=== PATIENT | female | born 1965 | race Hispanic/Latino ===

== ENCOUNTER 2021-01-26 15:47 | Inpatient (IN) | payer BC ==
--- OUTSIDE RECORDS SUMMARY | 2021-01-26 15:49 | XMS REPORT | Continuity of Care Document ---
:1965 Author Organization [facility] t Address [address] [place] [id number] Care Team Providers Name Role Phone Unavailable Unavailable Unavailable Problems This patient has no known problems. Allergies, Adverse Reactions, Alerts This patient has no known allergies or adverse reactions. Medications This patient has no known medications. Procedures This patient has no known procedures. Results Test Description Test Time Test Comments Results Result Sourc e Comments MRA BRAIN WO 2017-08-15 CLINICAL INDICATION: 17:39:04 I67.9 Cerebrovascular disease, unspecified MODALITY: Avanto 1.5 Remedios 18 channel MRITECHNIQUE: 3 dimensional time of flight MR angiographic images, centered at the lower brule of [place], are performed. 2D and 3 D reconstructions are accomplished.IMPRESSIO N:Normal MR angiography of the brain and lower brule of [place].FINDINGS:COMPAR SHANITA: NoneThe bilateral distal cervical, petrous, cavernous and supraclinoid internal carotid arteries are patent. The anterior communicating artery is patent. The visualized anterior cerebral and middle cerebral arteries are patent. The middle cerebral arteries are followed to the perisylvian regions and are patent bilaterally.Posterior communicating arteries are patent. The bilateral vertebral arteries are patent without luminal abnormalities. The basilar artery is normal. There is no evidence of basilar artery stenosis. The visualized posterior circulation is normal.There is no evidence of aneurysm or vascular malformation.There is no significant intracranial atheromatous disease, luminal stenosis or vascular filling defect.There is no evidence of intracranial large vessel vasculitic process.There are no intracranial or skull base vascular dissections.
[2021-01-26] MEDS ORDERED: MORPHINE 4 MG/ML SYR ONE (19:01)
[2021-01-26] MEDS ORDERED: FAMOTIDINE 20 MG/2 ML VIAL IV ONE (19:01)
[2021-01-26] MEDS ORDERED: ONDANSETRON 4 MG/2 ML VIAL ONE (19:01)
[2021-01-26] MEDS ORDERED: NA CHLORIDE 0.9% 1,000 ML ONE (19:02)
[2021-01-26 19:10] LABS: Absolute Lymphocytes (CBC) 1.5 K/uL (0.7-4.9); Basophils % 0.5 % (0-1.3); Hematocrit 49.6 % (36.0-45.0); Lymphocytes % 18.9 % (15.3-44.8); MPV 10.5 fL (7.6-11.3); RBC Red Blood Cell Count 5.61 M/uL (3.86-4.86)
[2021-01-26 21:25] LABS: Albumin 3.9 g/dL (3.4-5.0); Bilirubin Direct 0.1 mg/dL (0-0.2); Bilirubin Total 0.5 mg/dL (0.2-1.0); Potassium 3.8 mmol/L (3.5-5.1); Protein, Total 7.8 g/dL (6.4-8.2)
--- NOTE | 2021-01-26 21:34 | RAD REPORT ---
EXAM DESCRIPTION: CTAbdomen Pelvis W Contrast - 01/26/2021 9:13 pm CLINICAL HISTORY: ABD PAIN COMPARISON: No comparisons TECHNIQUE: CT of the abdomen and pelvis was performed. All CT scans are performed using dose optimization technique as appropriate and may include automated exposure control or mA/KV adjustment according to patient size. FINDINGS: Lower chest: No acute abnormality. Liver: No acute abnormality or suspicious lesions. Biliary: No biliary ductal dilatation. Stomach: Distended stomach. Duodenum: No significant focal abnormality. Pancreas: No significant abnormality. Spleen: No significant abnormality. Adrenal: No suspicious lesions. Kidney/ureter: No hydronephrosis. No renal calculi. Too small to characterize and/or benign appearing renal lesions are noted. Retroperitoneum: No retroperitoneal adenopathy. Vascular: No aneurysm. Bowel: Dilated small bowel with multiple air-fluid levels measuring 3.2 cm. There is a transition to nondilated small bowel distally. There is stool within the colon. Normal appendix. Peritoneum: Small volume ascites. Bladder: Grossly unremarkable. Reproductive: No adnexal masses. Bones: No acute fracture. Moderate disc height loss at L5-S1. Other: n/a IMPRESSION: Small bowel obstruction with transition point in the ileum. No obstructing mass is seen. This is presumably secondary to adhesions. Moderate length segment of small bowel wall thickening wi thin the central abdomen that is is concerning for coexisting enteritis. Small volume of free fluid.
--- NOTE | 2021-01-26 21:59 | EDPHYS ---
Physician Documentation [facility] Name: Macy Brar Age: 55 yrs Sex: Female : 1965 Arrival Date: 01/26/2021 Time: 15:51 Bed 23 Private MD: ED Physician Aurelio Pablo HPI: 01/26 18:43 This 55 yrs old Female presents to ER via Ambulatory with complaints of kdr Abdominal Pain. 18:43 The patient presents with abdominal pain in the upper abdomen, abdominal distention kdr that is diffuse. Onset: The symptoms/episode began/occurred yesterday, After she ate. The symptoms do not radiate. Associated signs and symptoms: Pertinent positives: nausea and vomiting, Pertinent negatives: diarrhea, dysuria, fever, headache, hematuria, palpitations, shortness of breath, vaginal discharge, vomiting blood. The symptoms are described as achy, sharp, vague. Modifying factors: The symptoms are alleviated by nothing, the symptoms are aggravated by food. Severity of pain: At its worst the pain was moderate severe incapacitating just prior to arrival, in the emergency department the pain is unchanged. The patient has experienced similar episodes in the past, a few times. The patient has been recently seen by a physician: Patient was admitted for about a week at [facility] and was discharged last Sunday. She has been fine until yesterday when after she ate she began to have abdominal pain and vomiting. 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 - Social history:: Smoking status: Patient denies any tobacco usage or history of. ROS: 18:43 Constitutional: Negative for fever, chills, and weight loss, Eyes: Negative for injury, kdr pain, redness, and discharge, ENT: Negative for injury, pain, and discharge, Neck: Negative for injury, pain, and swelling, Cardiovascular: Negative for chest pain, palpitations, and edema, Respiratory: Negative for shortness of breath, cough, wheezing, and pleuritic chest pain, Back: Negative for injury and pain, : Negative for injury, bleeding, discharge, and swelling, MS/Extremity: Negative for injury and deformity, Skin: Negative for injury, rash, and discoloration, Neuro: Negative for headache, weakness, numbness, tingling, and seizure activity. Psych: Negative for depression, anxiety, suicide ideation, homicidal ideation, and hallucinations, Allergy/Immunology: Negative for hives, rash, and allergies, Endocrine: Negative for neck swelling, polydipsia, polyuria, polyphagia, and marked weight changes, Hematologic/Lymphatic: Negative for swollen nodes, abnormal bleeding, and unusual bruising. 18:43 Abdomen/GI: Positive for abdominal pain, nausea and vomiting, Negative for abdominal distension, anorexia, dysphagia, hematemesis, black/tarry stool, rectal pain, rectal bleeding, flatulence. Exam: 18:43 Constitutional: This is a well developed, well nourished patient who is awake, alert, kdr and in no acute distress. Head/Face: Normocephalic, atraumatic. Eyes: Pupils equal round and reactive to light, extra-ocular motions intact. Lids and lashes normal. Conjunctiva and sclera are non-icteric and not injected. Cornea within normal limits. Periorbital areas with no swelling, redness, or edema. Neck: Trachea midline, no thyromegaly or masses palpated, and no cervical lymphadenopathy. Supple, full range of motion without nuchal rigidity, or vertebral point tenderness. No Meningismus. Chest/axilla: Normal chest wall appearance and motion. Nontender with no deformity. No lesions are appreciated. Cardiovascular: Regular rate and rhythm with a normal S1 and S2. No gallops, murmurs, or rubs. Normal PMI, no JVD. No pulse deficits. Respiratory: Lungs have equal breath sounds bilaterally, clear to auscultation and percussion. No rales, rhonchi or wheezes noted. No increased work of breathing, no retractions or nasal flaring. Back: No spinal tenderness. No costovertebral tenderness. Full range of motion. Skin: Warm, dry with normal turgor. Normal color with no rashes, no lesions, and no evidence of cellulitis. MS/ Extremity: Pulses equal, no cyanosis. Neurovascular intact. Full, normal range of motion. Neuro: Awake and alert, GCS 15, oriented to person, place, time, and situation. Cranial nerves II-XII grossly intact. Motor strength 5/5 in all extremities. Sensory grossly intact. Cerebellar exam normal. Normal gait. Psych: Awake, alert, with orientation to person, place and time. Behavior, mood, and affect are within normal limits. 18:43 Abdomen/GI: Inspection: distension, obese Bowel sounds: diminished, in all quadrants, Palpation: soft, moderate abdominal tenderness, in all quadrants. Vital Signs: 16:14 BP 141 / 101; Pulse 89; Resp 16; Temp 97.8(TE); Pulse Ox 100% on R/A; tw2 19:00 BP 155 / 85; Pulse 74; Resp 16; Temp 99.0; Pulse Ox 99% 0 lpm ; Weight 68.95 kg; Height iw 5 ft. 2 in. (157.48 cm); Pain 10/10; 20:25 BP 144 / 89; Pulse 83; Resp 16; Pulse Ox 97% 0 lpm ; iw 23:48 BP 139 / 89; Pulse 86; Resp 18; Temp 98.3; Pulse Ox 98% 0 lpm ; sv1 19:00 Body Mass Index 27.80 (68.95 kg, 157.48 cm) iw MDM: 18:43 Data reviewed: vital signs, nurses notes, lab test result(s), radiologic studies. kdr Counseling: I had a detailed discussion with the patient and/or guardian regarding: the historical points, exam findings, and any diagnostic results supporting the discharge/admit diagnosis, lab results, radiology results. 19:20 Patient medically screened. rn 21:57 Differential diagnosis: appendicitis, bowel obstruction, diverticulitis, non-specific rn abd pain. Response to treatment: the patient's symptoms have mildly improved after treatment, and as a result, I will admit patient. Admission orders: after a detailed discussion of the patient's condition and case, the admit orders are written by me. ED course: Consulted with Dr. Nieves, states admit to hospitalist service.. 01/26 18:18 Order name: Basic Metabolic Panel; Complete Time: 21:40 kdr 01/26 18:18 Order name: CBC with Diff; Complete Time: 20:27 kdr 01/26 18:18 Order name: Hepatic Function; Complete Time: 21:40 kdr 01/26 18:18 Order name: Lipase; Complete Time: 21:40 kdr 01/26 21:14 Order name: CREATININE WHOLE BLOOD; Complete Time: 21:40 EDMS 01/26 21:59 Order name: COVID-19 SARS RT PCR (Document "Date of Onset" if Symptomatic) la1 01/26 18:42 Order name: CT Abd/Pelvis - IV Contrast Only; Complete Time: 21:40 kdr 01/26 22:00 Order name: SARS-COV-2 RT PCR EDMS 01/27 00:49 Order name: Glucose, Ancillary Testing EDMS 01/26 18:18 Order name: IV Saline Lock; Complete Time: 18:52 kdr 01/26 18:18 Order name: Labs collected and sent; Complete Time: 18:52 kdr Administered Medications: 19:10 Drug: NS 0.9% 1000 ml Route: IV; Rate: 1 bolus; Site: left antecubital; iw 19:10 Drug: morphine 4 mg Route: IVP; Site: left antecubital; iw 20:05 Follow up: Response: Pain is decreased iw 19:10 Drug: Zofran (Ondansetron) 4 mg Route: IVP; Site: left antecubital; iw 20:04 Follow up: Response: Nausea is decreased iw 19:10 Drug: Pepcid (famotidine) 20 mg Route: IVP; Site: left antecubital; iw 20:04 Follow up: Response: No adverse reaction iw 22:54 Drug: Zosyn (piperacillin-tazobactam) 3.375 grams Route: IVPB; Infused Over: 60 mins; sv1 Site: left antecubital; Disposition Summary: 01/26/21 21:58 Hospitalization Ordered Hospitalization Status: Inpatient Admission rn Provider: Juan Pablo rn Location: Telemetry/MedSurg (Inpatient) rn Condition: Stable rn Problem: new rn Symptoms: have improved rn Bed/Room Type: Standard rn Room Assignment: 216(01/26/21 23:20) eb1 Diagnosis - Other and unspecified intestinal obstruction rn Forms: - Medication Reconciliation Form rn - SBAR form rn Signatures: Dispatcher [employer] EDMS eLo Hopper MD MD kdr Williams, Irene, RN RN Aurelio Newton MD MD rn Armando Bradley, WIG DRESSER-C WIG DRESSER-Cla1 Senia Duff RN RN tw2 Brandy Stevens RN RN eb1 Hany Auguste, RN RN sv1 Corrections: (The following items were deleted from the chart) 22:01 21:59 NG Tube ordered. rn rn 23:20 21:58 rn eb1
--- NOTE | 2021-01-26 21:59 | ER ---
Nurse's Notes [facility] Name: Macy Brar Age: 55 yrs Sex: Female : 1965 Arrival Date: 01/26/2021 Time: 15:51 Bed 23 Private MD: Diagnosis: Other and unspecified intestinal obstruction Presentation: 01/26 16:10 Chief complaint: Patient states: i am having severe stomach pains. i have been dealing tw2 with it for a week. i was admitted to [facility] for gastritis and a stomach ulcer. there was now bowel obstruction. i was fine up until yesterday but after i ate dinner i was in pain every since. pain is in the center of my stomach. i am nauseous and i have vomited twice today. Coronavirus screen: At this time, the client does not indicate any symptoms associated with coronavirus-19. Ebola Screen: Patient denies travel to an Ebola-affected area in the 21 days before illness onset. 16:10 Method Of Arrival: Ambulatory tw2 16:14 Initial Sepsis Screen: Does the patient meet any 2 criteria? No. Patient's initial tw2 sepsis screen is negative. Does the patient have a suspected source of infection? No. Patient's initial sepsis screen is negative. Risk Assessment: Do you want to hurt yourself or someone else? Patient reports no desire to harm self or others. Onset of symptoms was January 26, 2021. 16:14 Acuity: ERIC 3 tw2 Triage Assessment: 16:14 General: Appears in no apparent distress. comfortable, Behavior is calm, cooperative, tw2 appropriate for age. Pain: Complains of pain in abdomen. GI: Reports lower abdominal pain, upper abdominal pain, nausea, vomiting. 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 - Social history:: Smoking status: Patient denies any tobacco usage or history of. Screenin:14 Abuse screen: none. Nutritional screening: No deficits noted. Tuberculosis screening: iw No symptoms or risk factors identified. Never had TB. Fall Risk None identified. Assessment: 19:15 Pain: Complains of pain in abdomen. GI: Bowel sounds Abd is soft Abdomen is tender to iw palpation X 4 quads. 23:50 General: The patient is to be admitted to room 216. . sv1 Vital Signs: 16:14 BP 141 / 101; Pulse 89; Resp 16; Temp 97.8(TE); Pulse Ox 100% on R/A; tw2 19:00 BP 155 / 85; Pulse 74; Resp 16; Temp 99.0; Pulse Ox 99% 0 lpm ; Weight 68.95 kg; Height iw 5 ft. 2 in. (157.48 cm); Pain 10/10; 20:25 BP 144 / 89; Pulse 83; Resp 16; Pulse Ox 97% 0 lpm ; iw 23:48 BP 139 / 89; Pulse 86; Resp 18; Temp 98.3; Pulse Ox 98% 0 lpm ; sv1 19:00 Body Mass Index 27.80 (68.95 kg, 157.48 cm) iw ED Course: 15:51 Patient arrived in ED. mr 16:14 Arm band placed on. tw2 16:16 Triage completed. tw2 18:01 Leo Hopper MD is Attending Physician. kdr 18:26 Amaya Saunders RN is Primary Nurse. iw 18:51 Initial lab(s) drawn, by co, sent to lab. Inserted saline lock: 20 gauge in left iw antecubital area, using aseptic technique. Blood collected. 19:14 Patient has correct armband on for positive identification. Bed in low position. Call iw light in reach. Side rails up X 1. 19:20 Attending Physician role handed off by Leo Hopper MD rn 19:20 Aurelio Pablo MD is Attending Physician. rn 21:13 CT Abd/Pelvis - IV Contrast Only In Process Unspecified. EDMS 21:58 Juan Pablo MD is Hospitalizing Provider. rn 22:54 COVID-19 SARS RT PCR (Document "Date of Onset" if Symptomatic) Sent. sv1 23:50 No provider procedures requiring assistance completed. IV is patent. sv1 23:51 Patient admitted, IV remains in place. intact. sv1 Administered Medications: 19:10 Drug: NS 0.9% 1000 ml Route: IV; Rate: 1 bolus; Site: left antecubital; iw 19:10 Drug: morphine 4 mg Route: IVP; Site: left antecubital; iw 20:05 Follow up: Response: Pain is decreased iw 19:10 Drug: Zofran (Ondansetron) 4 mg Route: IVP; Site: left antecubital; iw 20:04 Follow up: Response: Nausea is decreased iw 19:10 Drug: Pepcid (famotidine) 20 mg Route: IVP; Site: left antecubital; iw 20:04 Follow up: Response: No adverse reaction iw 22:54 Drug: Zosyn (piperacillin-tazobactam) 3.375 grams Route: IVPB; Infused Over: 60 mins; sv1 Site: left antecubital; Outcome: 21:58 Decision to Hospitalize by Provider. rn 23:51 Admitted to Med/surg accompanied by tech. sv1 23:51 Condition: good 23:56 Admitted to Med/surg room 216, with chart, Report called to CATRACHITA Krueger lp1 23:56 Instructed on the need for admit. 01/27 00:50 Patient left the ED. lp1 Signatures: Dispatcher [employer] EDMS Leo Hopper MD MD kdr Rivera, Mary mr Amaya Saunders RN RN iw Aurelio Pablo MD MD rn Pena, Laura, RN RN lp1 Senia Duff RN RN 2 Hany Auguste RN RN sv1
[2021-01-26] MEDS ORDERED: NA CHLORIDE 0.9% 100 ML ONE (22:08)
[2021-01-26] MEDS ORDERED: PIPERACIL/TAZO 3.375 GM VIAL IV ONE (22:09)
--- NOTE | 2021-01-26 22:52 | P.HP ---
Certification for Inpatient Patient admitted to: Inpatient With expected LOS: >2 Midnights Patient will require the following post-hospital care: None Practitioner: I am a practitioner with admitting privileges, knowledge of patient current condition, hospital course, and medical plan of care. Services: Services provided to patient in accordance with Admission requirements found in Title 42 Section 412.3 of the Code of Federal Regulations Patient History Date of Service: 01/26/21 Primary Care Provider: dr. Apple Reason for admission: Small bowel obstruction History of Present Illness: 55-year-old female with history of diabetes mellitus type 2, gastritis presents emergency department for abdominal pain. Patient ports that she was admitted at [facility] on Sunday of last week overnight for suspected small bowel obstruction, patient had rapid improvement and was discharged at that time. Patient reports has been feeling well ever since then until today after eating dinner began having epigastric pain and vomited twice. Patient presented to the emergency department for evaluation labs were significant for hemoglobin 16.6 medical 49.[address] abdomen pelvis demonstrated suspected mechanical small bowel obstruction with transition point at the ileum, patient has had 3 C-sections in the past, suspected adhesions. No flatus for the last 24 hours, last bowel movement yesterday. Will admit for further evaluation and management of small bowel obstruction. 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 moist/pink, EOMI, Sclerae nonicteric Neck: Supple, 2+ carotid pulse no bruit, No LAD, Without JVD or thyroid abnormality Respiratory: Clear to auscultation bilaterally, Normal air movement Cardiovascular: Regular rate/rhythm, Normal S1 S2 Capillary refill: <2 Seconds Gastrointestinal: Normal bowel sounds, Tenderness (Mild generalized abdominal tenderness) Musculoskeletal: No tenderness Integumentary: No rashes Neurological: Normal speech, Normal strength at 5/5 x4 extr, Normal tone, Normal affect - Studies Laboratory Data (last 24 hrs) 01/26/21 18:49: WBC 8.00, Hgb 16.6 H, Hct 49.6 H, Plt Count 215 01/26/21 18:49: Sodium 142, Potassium 3.8, BUN 14, Creatinine 1.14, Glucose 165 H, Total Bilirubin 0.5, AST 31, ALT 45, Alkaline Phosphatase 129 H, Lipase 98 Assessment and Plan - Plan Assessment: Small bowel obstruction Diabetes type [id number] Gastritis Plan: Small bowel obstruction: N.p.o., IVF, General surgery consult in place continue IV antibioticZosyn. Abdominal x-ray in the morning. Encourage ambulation, as needed pain medication. NG tube will be inserted if patient has worsening abdominal distention, severe pain or vomiting. Diabetes type [id number]: Every 6 hours Accu-Chek, mild sliding scale insulin, A1c with morning lab. Gastritis: Continue with IV Protonix daily. DVT PPX: Lovenox Code status: Full code Discharge Plan: Home Plan to discharge in: 48 Hours - Advance Directives Does patient have a Living Will: No Does patient have a Durable POA for Healthcare: No - Code Status/Comfort Care Code Status Assessed: Yes (Full code) Critical Care: No Time Spent Managing Pts Care (In Minutes): 55
[2021-01-27] MEDS ORDERED: MORPHINE 2 MG/ML SYR IV PRN (00:35)
[2021-01-27] MEDS ORDERED: SODIUM CHLORIDE 0.9% 10ML INJ IV PRN (00:35)
[2021-01-27] MEDS: D5 0.45 NS 1,000 ML IV SCH ×2 (00:57→08:10)
[2021-01-27] MEDS: ONDANSETRON 4 MG/2 ML VIAL IV PRN ×3 (00:57→17:35)
[2021-01-27 04:00] LABS: Basophils % 0.2 % (0-1.3); Hematocrit 44.5 % (36.0-45.0); Lymphocytes % 25.2 % (15.3-44.8); MPV 10.4 fL (7.6-11.3); RBC Red Blood Cell Count 5.03 M/uL (3.86-4.86)
[2021-01-27 04:23] LABS: Albumin 3.2 g/dL (3.4-5.0); Bilirubin Total 0.5 mg/dL (0.2-1.0); Magnesium 2.4 mg/dL (1.8-2.4); Potassium 3.8 mmol/L (3.5-5.1); Protein, Total 6.6 g/dL (6.4-8.2); Thyroid Stimulating Hormone 1.37 uIU/mL (0.360-3.740)
--- NOTE | 2021-01-27 05:48 | P.PN ---
Date of Service: 01/27/21 Subjective: Pain has improved, continues with some nausea, no emesis since admission Denies any bloating sensation No flatus, no bowel movement ROS: 10 point ROS as noted above, otherwise negative Physical exam GEN: Alert, oriented, NAD HEENT: Normal conjunctiva, sclera anicteric CV: Regular rate and rhythm, no edema Pulm: Nonlabored respirations on room air ABD: Soft, tenderness to palpation in lower abdomen / perimbilical Neuro: Normal speech, normal affect Problem list Small bowel obstruction, recurrent Diabetes type [id number] Gastritis with ulcer Bowel rest, n.p.o., IV fluids General surgery consulted Continue IV Zosyn Pain medication as needed NG tube if patient has worsening symptoms Accu-Chek with sliding scale insulin Continue IV Protonix for treatment of her gastritis/ulcer Recently had similar episode 1 week ago, was at [place], and resolved on its own. Code: Full Dispo: Anticipate DC home in 1-2 days, awaiting resolution of bowel obstruction Time Spent Managing Pts Care (In Minutes): 35
[2021-01-27] MEDS: INSULIN -REGULAR HUMAN 50 UNIT/0.5 ML ML SQ SCH ×3 (06:40→18:00)
[2021-01-27] MEDS ORDERED: INSULIN -REGULAR HUMAN 50 UNIT/0.5 ML ML SQ SCH (07:30)
[2021-01-27] MEDS: PIPER TAZO 3.375 GM in NA CHLORIDE 0.9% 100 ML IV SCH ×2 (07:54→17:08)
[2021-01-27] MEDS: ENOXAPARIN 40 MG/0.4 ML SQ SCH ×2 (07:54→09:00)
[2021-01-27 08:45] LABS: Urine Appearance TURBID (Clear); Urine Bilirubin NEGATIVE (Negative); Urine Blood NEGATIVE (Negative); Urine Color DK YELLOW (Yellow); Urine Glucose TRACE (Negative); Urine Microscopic Reflex ORDER UMIC; Urine Protein TRACE (Negative); Urine Specific Gravity >=1.030 (1.005-1.030); Urine Urobilinogen 0.2 mg/dL (0.2-1.0)
[2021-01-27] MEDS ORDERED: KCL 20 MEQ/100 mL IVPB 20 MEQ/100 ML BAG IV SCH (09:00)
[2021-01-27] MEDS ORDERED: PANTOPRAZOLE 40 MG INJ IVP SCH (09:00)
[2021-01-27 09:08] LABS: Calcium Oxalate Crystals- Ur MANY (NONE SEEN); Urine Amorphous Sediment 3+ /HPF (NONE SEEN); Urine Bacteria <20 /HPF (<20); Urine RBC NONE SEEN /HPF (NONE SEEN)
[2021-01-27] MEDS: D5 0.45 NS 500 ML IV SCH ×2 (11:58→18:13)
--- NOTE | 2021-01-27 12:38 | P.CNS ---
Date of Consult: 01/27/21 PC: This 55-year-old female presented to the emergency room with severe abdominal pain for diagnosis and treatment. HPC: Patient recently had been at another facility with a similar complaint. She was admitted at that time for small partial small bowel obstruction. After 72 hours, they felt that the obstruction had cleared, and she was tolerating a regular diet. She returned home and shortly after she began to resume her regular diet she presented back to our facility with the same complaints. She describes the pain as severe, constant, located just to the right of the midline in the mid abdomen. Also associated with some cramping. No recent bowel movements. Has however been passing gas per rectum. PSHx: x3 [1 midline, 2 Pfannenstiel incisions], neck surgery PMHx: Diabetes Social Hx: Allergic to fluconazole, and sulfa Sys R: No cough, wheeze, shortness of breath. No urinary complaints. States she is otherwise in fairly good health O/E: Awake alert vital signs are stable HEENT: Within normal limits Chest: Chest movement equal bilaterally Abd: Abdomen is soft, but firm no true guarding or rebound [place]: Intact Data: White cell count is normal, but however CT scan suspicious for small bowel obstruction Impression: Partial small bowel obstruction Plan: I will take her to the operating room for laparoscopy possible open laparotomy to evaluate and treat her abdominal complaint. I feel this is most likely going to be due to adhesions. We will try and do this laparoscopically as possible. However an open procedure was explained to the patient. The need for a bowel resections was explained. The possibility of bleeding, infection, leakage of anastomosis, and adhesive problems in the future were outlined. Unforeseen episodes were also explained. She understands and wants us to proceed.
[2021-01-27] MEDS ORDERED: LIDOCAINE 2% MPF 5 ML VIAL ONE (12:40)
[2021-01-27] MEDS ORDERED: MIDAZOLAM HCL 2 MG/2 ML INJ ONE (12:40)
[2021-01-27] MEDS ORDERED: dexAMETHasone 10 MG/ML VIAL ONE (12:40)
[2021-01-27] MEDS ORDERED: propofoL 200 MG/20 ML VIAL IV ONE (12:40)
[2021-01-27] MEDS ORDERED: ROCURONIUM 50 MG/5 ML VIAL IV ONE (12:41)
[2021-01-27] MEDS ORDERED: FENTANYL CITR 250 MCG/5 ML ONE (12:41)
[2021-01-27] MEDS ORDERED: NA CHLORIDE 0.9% 1,000 ML ONE (12:42)
[2021-01-27] MEDS ORDERED: ONDANSETRON 4 MG/2 ML VIAL ONE (12:43)
[2021-01-27] MEDS ORDERED: BUPIVACAINE 0.5% Inj,MDV 50 mL VIAL ONE (13:09)
[2021-01-27] MEDS ORDERED: NEOSTIGMINE 1 MG/ML -5 ML ONE (14:26)
[2021-01-27] MEDS ORDERED: GLYCOPYRROLATE 0.2 MG/ML SYR ONE ×2 (14:26)
[2021-01-27] MEDS ORDERED: KETOROLAC 30 MG/ML INJ ONE (14:26)
--- NOTE | 2021-01-27 14:51 | P.OP ---
Preoperative diagnosis: Partial small bowel obstruction Postoperative diagnosis: The same Primary procedure: Laparoscopy Secondary procedure: Laparoscopic lysis of adhesions Other procedure(s): Tap block with 0.25% Marcaine Anesthesia: General Estimated blood loss: Less than 10 cc Findings: Intra-abdominal adhesions Operative Technique: The patient brought the operating room and placed supine on the table. After the induction of adequate general anesthesia, a Nielson catheter was placed. The abdomen was then prepped with a DuraPrep solution, and she was draped in the usual aseptic manner. Attention was turned towards the left side of the abdominal wall. The area was injected with 0.25% Marcaine. A skin incision was made. This is where we used the Visiport to come through the subcutaneous tissue. The muscles layer were encountered and opened in order. The peritoneum was finally identified and we entered the peritoneal cavity. It was apparent there were numerous amount of omental adhesions to the anterior abdominal wall. The uterus was essentially stuck to the anterior abdominal wall in the lower pelvis. These adhesions were quite dense and thickened. They were taken down using blunt and sharp dissection with the Metzenbaum scissors. The anterior abdominal wall having finally been cleared the omentum was detached. It was now, after placing the patient in Trendelenburg and rolled to the left towards the right upper quadrant. The small bowel was identified. We were able to run this from the ligament of Treitz down distally towards the distal ileum. In the proximal abdomen was a area of dilation not acutely inflamed but it did come down to a taper area with a definite line across it where the hang up most likely was. The bowel was then fairly run down into the true pelvis also we came to the ileocecal valve. There was no evidence of any vascular compromise, no evidence of any acute inflammation, and no evidence of any further obstruction. At this point the end the small bowel was returned to its normal anatomical position. The omentum was laid over the top of the intestines. The anterior abdominal wall was now blocked with 0.25% Marcaine performing a tap block on both sides. The 10 mm trocar site was now approximated using the Endo Close and an absorbable suture. At this point the pneumoperitoneum was collapsed, the trochars removed, and the sutures tied. [place] were then applied to the skin. At the end of the procedure she was stable and sent to the recovery room. Needle sponge instrument count were correct. No drains were placed.
[2021-01-27] MEDS ORDERED: MORPHINE 4 MG/ML SYR IV PRN (15:17)
[2021-01-27 15:27] VITALS: O2SAT 97
[2021-01-27] MEDS ORDERED: MORPHINE 4 MG/ML SYR ONE (15:40)
[2021-01-27] MEDS: HYDROCODONE/APAP 7.5/325 MG TAB PO PRN (17:30)
[2021-01-27] MEDS ORDERED: MINERAL OIL 30 ML UCUP PO ONE (19:00)
[2021-01-28] MEDS: PIPER TAZO 3.375 GM in NA CHLORIDE 0.9% 100 ML IV SCH ×2 (01:22→09:03)
[2021-01-28] MEDS: D5 0.45 NS 500 ML IV SCH (01:29)
[2021-01-28] MEDS: HYDROCODONE/APAP 7.5/325 MG TAB PO PRN (04:55)
[2021-01-28] MEDS: ONDANSETRON 4 MG/2 ML VIAL IV PRN (05:09)
[2021-01-28] MEDS: INSULIN -REGULAR HUMAN 50 UNIT/0.5 ML ML SQ SCH ×3 (06:00→11:28)
[2021-01-28] MEDS ORDERED: D5 0.45 NS 1,000 ML IV SCH (06:01)
[2021-01-28 06:02] LABS: Absolute Lymphocytes (CBC) 1.2 K/uL (0.7-4.9); Basophils % 0.1 % (0-1.3); Hematocrit 38.8 % (36.0-45.0); Lymphocytes % 14.7 % (15.3-44.8); MPV 9.9 fL (7.6-11.3)
--- NOTE | 2021-01-28 06:02 | P.PN ---
Date of Service: 01/28/21 Subjective: ROS: 10 point ROS as noted above, otherwise negative Physical exam GEN: Alert, oriented, NAD HEENT: Normal conjunctiva, sclera anicteric CV: Regular rate and rhythm, no edema Pulm: Nonlabored respirations on room air ABD: Soft, tenderness to palpation in lower abdomen / perimbilical Neuro: Normal speech, normal affect Problem list Small bowel obstruction, recurrent Diabetes type [id number] Gastritis with ulcer General surgery consulted, s/p lysis of adhesions on 01/27 Pain medication as needed gentle IVF, diet advanced as tolerated Accu-Chek with sliding scale insulin Continue Protonix for treatment of her gastritis/ulcer Code: Full Dispo: Anticipate DC home within ~1 day, awaiting resolution of bowel obstruction Time Spent Managing Pts Care (In Minutes): 35
[2021-01-28 06:34] LABS: Bilirubin Total 0.4 mg/dL (0.2-1.0); Magnesium 2.2 mg/dL (1.8-2.4); Potassium 3.6 mmol/L (3.5-5.1); Protein, Total 6.2 g/dL (6.4-8.2)
[2021-01-28] MEDS ORDERED: PANTOPRAZOLE 40MG TABLET PO SCH (08:00)
[2021-01-28] MEDS ORDERED: POTASSIUM CL SA 10 MEQ TAB PO ONE (08:20)
[2021-01-28] MEDS ORDERED: POTASSIUM 25 MEQ EFFERV TAB PO ONE (09:00)
[2021-01-28] MEDS: ENOXAPARIN 40 MG/0.4 ML SQ SCH (09:02)
[2021-01-28 11:53] VITALS: BP 139/67; TEMP 97.5
--- NOTE | 2021-01-28 16:46 | P.DS ---
Admission Date: 01/26/21 Discharge Date: 01/28/21 Primary Care Provider: dr. Apple Disposition: DC HOME/HOME HEALTH CARE Reason for Admission: Small bowel obstruction Consultations: General surgeryDr. López Procedures: CT abdomen/pelvis (01/26): FINDINGS: Lower chest: No acute abnormality. Liver: No acute abnormality or suspicious lesions. Biliary: No biliary ductal dilatation. Stomach: Distended stomach. Duodenum: No significant focal abnormality. Pancreas: No significant abnormality. Spleen: No significant abnormality. Adrenal: No suspicious lesions. Kidney/ureter: No hydronephrosis. No renal calculi. Too small to characterize and/or benign appearing renal lesions are noted. Retroperitoneum: No retroperitoneal adenopathy. Vascular: No aneurysm. Bowel: Dilated small bowel with multiple air-fluid levels measuring 3.2 cm. There is a transition to nondilated small bowel distally. There is stool within the colon. Normal appendix. Peritoneum: Small volume ascites. Bladder: Grossly unremarkable. Reproductive: No adnexal masses. Bones: No acute fracture. Moderate disc height loss at L5-S1. Other: n/a IMPRESSION: Small bowel obstruction with transition point in the ileum. No obstructing mass is seen. This is presumably secondary to adhesions. Moderate length segment of small bowel wall thickening within the central abdomen that is is concerning for coexisting enteritis. Small volume of free fluid. Problem list Small bowel obstruction, recurrent; s/p lysis of adhesions Diabetes type [id number] Gastritis with ulcer Brief History of Present Illness: 55-year-old female with history of diabetes mellitus type 2, gastritis presents emergency department for abdominal pain. Patient ports that she was admitted at [facility] on Sunday of last week overnight for suspected small bowel obstruction, patient had rapid improvement and was discharged at that time. Patient reports has been feeling well ever since then until today after eating dinner began having epigastric pain and vomited twice. Patient presented to the emergency department for evaluation labs were significant for hemoglobin 16.6 medical 49[address] abdomen pelvis demonstrated suspected mechanical small bowel obstruction with transition point at the ileum, patient has had 3 C-sections in the past, suspected adhesions. No flatus for the last 24 hours, last bowel movement yesterday. Will admit for further evaluation and management of small bowel obstruction. Hospital Course: Patient was made n.p.o. and treated with IV fluids. General surgery consulted and took patient to the OR for diagnostic laparoscopy. Patient was found to have adhesions at the transition point. She underwent lysis of adhesions laparoscopically without any complications. Her postoperative course was uncomplicated, she was ambulating, tolerating regular diet, having some mild i ncisional discomfort, urinating, passing flatus. Patient was deemed stable for discharge per general surgery. Follow-up with general surgery in a few weeks. Follow-up with PCP within 1 week. Vital Signs/Physical Exam: Temp Pulse Resp BP Pulse Ox 97.5 F 61 16 139/67 98 01/28/21 11:52 01/28/21 11:52 01/28/21 11:52 01/28/21 11:52 01/28/21 11:52 General: Alert, In no apparent distress, Oriented x3 HEENT: Mucous membr. moist/pink, Sclerae nonicteric Neck: Supple, No LAD Respiratory: Clear to auscultation bilaterally, Normal air movement Cardiovascular: No edema, Regular rate/rhythm, No murmurs Gastrointestinal: Soft and benign, Non-distended, Tenderness (Minimal at incisions) Musculoskeletal: No swelling Integumentary: No rashes, No significant lesion, No erythema Neurological: Normal speech, Normal affect Laboratory Data at Discharge: WBC 8.40 K/uL (4.3-10.9) 01/28/21 05:20 Hgb 13.1 g/dL (12.0-15.0) 01/28/21 05:20 Hct 38.8 % (36.0-45.0) 01/28/21 05:20 Plt Count 180 K/uL (152-406) 01/28/21 05:20 Sodium 140 mmol/L (136-145) 01/28/21 05:20 Potassium 3.6 mmol/L (3.5-5.1) 01/28/21 05:20 BUN 10 mg/dL (7-18) 01/28/21 05:20 Creatinine 0.91 mg/dL (0.55-1.3) 01/28/21 05:20 Glucose 146 mg/dL (74-106) H 01/28/21 05:20 Magnesium 2.2 mg/dL (1.8-2.4) 01/28/21 05:20 Total Bilirubin 0.4 mg/dL (0.2-1.0) 01/28/21 05:20 AST 15 U/L (15-37) 01/28/21 05:20 ALT 32 U/L (12-78) 01/28/21 05:20 Alkaline Phosphatase 96 U/L (45-117) 01/28/21 05:20 Lipase 98 U/L (73-393) 01/26/21 18:49 Home Medications: Ciprofloxacin HCl 500 mg PO BID 01/27/21 Famotidine 20 mg PO BEDTIME 01/27/21 Hyoscyamine Sulfate 0.125 mg PO Q6H PRN 01/27/21 L.acidoph,Paracasei, B.lactis [Probiotic] 1 cap PO PRN PRN 01/27/21 Metformin HCl 500 mg PO BID 01/27/21 Methscopolamine Gustavus 5 mg PO DAILY 01/27/21 Metronidazole 500 mg PO TID 01/27/21 Omeprazole 20 mg PO DAILY 01/27/21 Ondansetron [Zofran (Odt)*] 8 mg PO Q8H PRN 01/27/21 Followup: Lev López MD [ACTIVE - CAN ADMIT] - (Surgeon- Call office on Sunday or Sunday for a follow up appointment) Paulo Richardson MD [Primary Care Provider] - Time spent managing pt's care (in minutes): 45
== END 2021-01-28 16:25 | disposition home health service (06) | DRG 337 ==
LOC: ER 15:47 → ERHOLD 22:06 → 2ND 01-27 00:11
PROVIDERS: ADMIT Hospitalist; ATTEND Hospitalist
PROC: 0WJF4ZZ Inspection of Abdominal Wall, Percutaneous Endoscopic Approach (ICD-10-PCS; 2021-01-27)
PROC: 0DNU4ZZ Release Omentum, Percutaneous Endoscopic Approach (ICD-10-PCS; principal; 2021-01-27 13:00)
DX: K56.600 Partial intestinal obstruction, unspecified as to cause (principal); K29.70 Gastritis, unspecified, without bleeding; E11.9 Type 2 diabetes mellitus without complications; Z88.1 Allergy status to other antibiotic agents; Z79.84 Long term (current) use of oral hypoglycemic drugs; Z20.822 Contact with and (suspected) exposure to COVID-19; Z79.899 Other long term (current) drug therapy
CPT/HCPCS: 36415; 74177; 80048; 80053; 80076; 81003; 81015; 82565; 82947; 83690; 83735; 84439; 84443; 85025; 94010; 96374; 96375; 99285; C9113; J1100; J1650; J2250; J2405; J2543; J2704; J2710; J3010; J3480; J7030; J7799; Q9967; U0003